=== PATIENT | female | born 1950 | race Caucasian/White ===

== ENCOUNTER → 2019-07-24 | Outpatient (CLI) | payer BC | END | disposition home or self-care (01) | LOC: LAB SHORT 13:19 → PLD 13:19 | DX: L57.0 Actinic keratosis (principal) | CPT/HCPCS: 88305 ==

== ENCOUNTER 2020-07-05 07:47 | Day surgery (SDC) | payer BC ==
[~2020-07-05] VITALS: Ht 162.6 cm; Wt 59.5 kg
[2020-07-05] MEDS ORDERED: LEVOTHYROXINE88 MC1 (08:30)
[2020-07-05] MEDS ORDERED: NATURE THROID (08:31)
== END 2020-07-05 10:55 | disposition home or self-care (01) ==
LOC: ORSCSDS 07:47
PROVIDERS: Surgery
PROC: 0YU50JZ Supplement Right Inguinal Region with Synthetic Substitute, Open Approach (ICD-10-PCS; principal; 2020-07-05 09:00)
DX: K40.90 Unilateral inguinal hernia, without obstruction or gangrene, not specified as recurrent (principal)
CPT/HCPCS: A9270; C1781; J0690; J1100; J2405; J2704; J3010; J7030; J7120